=== PATIENT | male | born 1955 | race Caucasian/White ===

== ENCOUNTER 2024-06-23 14:37 | Day surgery (SDC) | payer MEDICARE, OTHER ==
[~2024-06-23] VITALS: Ht 177.8 cm; Wt 93.2 kg
[2024-06-23] VITALS (19 sets, daily range): BP systolic 93–156; BP diastolic 53–76; PULSE 53–74; RESP 10–24; O2SAT 94–100
[~2024-06-23 14:37] MED LIST: ATOR20TA PO; DIAZ5TAB22 PO; HYDR12.55 PO; MECO10005 PO; POTA10CA95 PO; SILD25TA10 PO; vit d3 PO
[2024-06-23] MEDS ORDERED: MIDAZolam 1 MG/ML 5ML VIAL ONE (15:42)
[2024-06-23] MEDS ORDERED: fentaNYL/PF 50MCG/1 ML 2ML syringe ONE ×2 (15:42→15:54)
[2024-06-23] MEDS ORDERED: diphenhydrAMINE 50 mg/ml inj ONE (15:56)
[2024-06-23] MEDS ORDERED: simethicone 40mg/0.6ml oral drops 30ml ONE (16:18)
== END 2024-06-23 17:20 | disposition home or self-care (01) ==
LOC: GI LAB 14:37
PROVIDERS: ATTEND Internal Medicine Gastroenterology
DX: Z12.11 Encounter for screening for malignant neoplasm of colon (principal); K63.5 Polyp of colon; K57.30 Diverticulosis of large intestine without perforation or abscess without bleeding; K64.1 Second degree hemorrhoids; D12.2 Benign neoplasm of ascending colon
CPT/HCPCS: 45385; 88305; 99153; A4620; C1889; G0500; J1200; J2250; J3010; J7030; Z7512; 99152